=== PATIENT | male | born 1945 | race Caucasian/White ===

== ENCOUNTER → 2019-09-22 12:47 | Outpatient (CLI) | payer OTHER, SELFPAY ==
--- NOTE | 2019-09-22 13:24 | DI.MRI.S_ITS ---
PROCEDURE: MR SHOULDER LT WO CON INDICATIONS: Pain in left shoulder TECHNIQUE: Noncontrast oblique coronal T2 fast spin echo with fat saturation, oblique sagittal T1 spin echo and T2 fast spin echo with fat saturation, axial T1 spin echo and T2 fast spin echo with fat saturation through the shoulder. COMPARISON: None. FINDINGS: Image quality: Excellent. Rotator cuff: Full thickness tear involving the anterior fibers of the supraspinatus tendon, and the superior fibers of the subscapularis tendon. This measures approximately 2.0 cm in AP dimension as seen on sagittal image 12/11, and approximately 2.0 cm on coronal image 6/8. Infraspinatus tendinopathy, with articular and bursal sided partial-thickness tear. Teres minor appears intact. Borderline atrophy of the supraspinatus and subscapularis muscle. Bones and bursae: No bone marrow contusions or fractures. Severe hypertrophic acromioclavicular joint degeneration. Acromion demonstrates conventional anatomy, without an os acromiale. Capsule and soft tissues: Age-indeterminate ill-defined superior labral tear. There is also marked blunting and macerated appearing tear of the posterior segment of the labrum. Long head of the biceps tendon intact. Limited evaluation however given internal rotation of the humerus. Examination. Near-complete obliteration of the subcoracoid fat Coracohumeral ligament intact. IMPRESSION: Full thickness tear involving the anterior fibers of the supraspinatus tendon, and the superior fibers of the subscapularis tendon. Borderline associated atrophy of the supraspinatus and subscapularis muscle Infraspinatus tendinopathy with partial-thickness articular bursal sided tear. Ill-defined age-indeterminate superior labral tear. Additional blunted/macerated tear involving the posterior segment Dictated by: Addison Lovelace M.D. on 09/22/2019 at 14:39 Approved by: Addison Lovelace M.D. on 09/22/2019 at 14:47
== END ==
PROVIDERS: Family Provider Physician Assistant Medical; PCP Physician Assistant Medical; Referring Provider Internal Medicine; Visit Provider Internal Medicine
DX: M25.512 Pain in left shoulder (principal); M75.122 Complete rotator cuff tear or rupture of left shoulder, not specified as traumatic; S43.432A Superior glenoid labrum lesion of left shoulder, initial encounter; S43.492A Other sprain of left shoulder joint, initial encounter
CPT/HCPCS: 73221